=== PATIENT | male | born 1955 | race Caucasian/White ===

== ENCOUNTER 2016-12-03 18:40 | Emergency (ER) | payer OTHER ==
[2016-12-03 18:59] VITALS: BP 152/90; PULSE 108; TEMP 97.8; BMI 26.5
--- NOTE | 2016-12-03 19:07 | PDOC ---
Rapid Medical Evaluation Chief Complaint: Bleeding from Anus Time Seen by Provider: 12/03/16 18:49 Medical Evaluation: Allergies Allergy/AdvReac Type Severity Reaction Status Date / Time No Known Drug Allergies Allergy Verified 12/03/16 18:45 Vital Signs Temp Pulse Resp BP Pulse Ox 97.8 F 108 H 18 152/90 100 12/03/16 18:46 12/03/16 18:46 12/03/16 18:46 12/03/16 18:46 12/03/16 18:46 12/03/16 19:04 RME Note: I have performed a brief, in-person evaluation of this patient . This patient presents with CC: rectal bleeding today increased; Hx colon CA; scheduled for colonoscopy x tomorrow with LMD Pertinent PE findings are: ; VSS, very anxious; HR= 108 I have ordered: labs The patient will proceed to ED for further evaluation.
[2016-12-03 19:11] LABS: BASOPHIL 0.4 % (0-2.0); EOSINOPHIL 1.9 % (0-4.5); MCHC 34.5 g/dl (32.0-35.9); MEAN PLT VOLUME 7.7 fl (7.5-11.1); PLATELET COUNT 157 K/MM3 (134-434); RDW 14.1 % (11.9-15.9); WHITE BLOOD COUNT 9.7 K/mm3 (4.0-10.0)
[2016-12-03 19:23] LABS: INR 1.08 (0.82-1.09); PROTHROMBIN TIME (PATIENT) 11.9 SEC (9.98-11.88)
--- NOTE | 2016-12-03 20:13 | PDOC ---
History of Present Illness - General History Source: Patient Exam Limitations: No Limitations - History of Present Illness Initial Comments: 12/03/16 20:27 Patient is a 61 year old male with significant past medical of colon ca (in remission) and hemorrhoids who presents to the ED with rectal bleeding since 5 pm today. Patient notes that he has a colonoscopy schedule with Dr. Shelton tomorrow and started bowel prep early this AM, He notes that during the prep he was not experiencing any major issues until 5 pm today where he developed rectal bleeding. Patient reports bleeding hemorrhoids in the past. He became concerned about the amount of blood that he was having today. He has no other complaints at the time. He denies fever, chills, SOB, cp, nausea, vomiting,abdominal pain, diarrhea or constipation. PCP - Dr. Gonsales GI - Dr. Shelton Oncologist - Dr. Oliva <Flor Bloom - Last Filed: 12/03/16 20:27> - General History Source: Patient <Alphonso Singh - Last Filed: 12/03/16 21:05> - General Chief Complaint: Bleeding from Anus Stated Complaint: RECTAL BLEEDING Time Seen by Provider: 12/03/16 18:49 Past History <Flor Bloom - Last Filed: 12/03/16 20:27> - Past Medical History Anemia: No Asthma: No Cancer: Yes (Colon 2011) Cardiac Disorders: No CVA: No COPD: No CHF: No Dementia: No Diabetes: No GI Disorders: Yes (Acid Reflux/Colon CA; DIVERTICULOSIS; POLYPS,diverticulosis) Disorders: No HTN: Yes Hypercholesterolemia: No Liver Disease: No Seizures: No Thyroid Disease: No Other medical history: gout - Surgical History Abdominal Surgery: Yes (RIGHT HEMICOLECTOMY) Appendectomy: Yes (1987) Cardiac Surgery: No Cholecystectomy: No Lung Surgery: No Neurologic Surgery: No Orthopedic Surgery: No - Psycho/Social/Smoking Cessation Hx Anxiety: No Suicidal Ideation: No Smoking History: Never smoked Have you smoked in the past 12 months: No If you are a former smoker, when did you quit?: 30 Years ago Information on smoking cessation initiated: No Hx Alcohol Use: No Drug/Substance Use Hx: No Substance Use Type: None Hx Substance Use Treatment: No <Alphonso Singh - Last Filed: 12/03/16 21:05> - Past Medical History Allergies/Adverse Reactions: Allergies Allergy/AdvReac Type Severity Reaction Status Date / Time No Known Drug Allergies Allergy Verified 12/03/16 18:45 Home Medications: Ambulatory Orders Allopurinol [Zyloprim -] 100 mg PO DAILY #0 02/27/12 Acetaminophen [Tylenol .Regular Strength -] 650 mg PO Q4H PRN #0 tablet Amlodipine Besylate [Norvasc -] 5 mg PO BID 04/18/12 Cyanocobalamin [Vitamin B12 -] 1,000 mcg PO DAILY 02/24/15 Famotidine [Pepcid] 40 mg PO PRN 02/24/15 Ibuprofen/Diphenhydramine Cit [Advil Pm Caplet] 1 each PO PRN 02/24/15 Multivitamins [Tab-A-Vit -] 1 tab PO DAILY 02/24/15 Review of Systems - Review of Systems Able to Perform ROS?: Yes Comments:: 12/03/16 20:28 CONSTITUTIONAL: Absent: fever, chills, diaphoresis, generalized weakness, malaise, loss of appetite HEENT: Absent: rhinorrhea, nasal congestion, throat pain, throat swelling, difficulty swallowing, mouth swelling, ear pain, eye pain, visual Changes CARDIOVASCULAR: Absent: chest pain, syncope, palpitations, irregular heart rate, lightheadedness , peripheral edema RESPIRATORY: Absent: cough, shortness of breath, dyspnea with exertion, orthopnea, wheezing, stridor, hemoptysis GASTROINTESTINAL: Present: rectal bleeding Absent: abdominal pain, abdominal distension, nausea, vomiting, diarrhea, constipation, melena, hematochezia GENITOURINARY: Absent: dysuria, frequency, urgency, hesitancy, hematuria, flank pain, genital pain MUSCULOSKELETAL: Absent: myalgia, arthralgia, joint swelling SKIN: Absent: rash, itching, pallor HEMATOLOGIC/IMMUNOLOGIC: Absent: easy bleeding, easy bruising, lymphadenopathy, frequent infections ENDOCRINE: Absent: unexplained weight gain, unexplained weight loss, heat intolerance, cold intolerance NEUROLOGIC: Absent: headache, focal weakness or paresthesias, dizziness, unsteady gait, seizure, mental status changes, bladder or bowel incontinence PSYCHIATRIC: Absent: anxiety, depression, suicidal or homicidal ideation, hallucinations. <Flor Bloom - Last Filed: 12/03/16 20:27> *Physical Exam - Vital Signs Last Vital Signs Temp Pulse Resp BP Pulse Ox 97.8 F 108 H 18 152/90 100 12/03/16 18:46 12/03/16 18:46 12/03/16 18:46 12/03/16 18:46 12/03/16 18:46 - Physical Exam Comments: 12/03/16 20:28 GENERAL: Well developed, well nourished. Awake and alert. In no acute distress. HEENT: Normocephalic, atraumatic. PERRLA, EOMI. No conjunctival pallor. Sclerae are non -icteric. Moist mucous membranes. Oropharynx is clear. NECK: Supple. Full ROM. No JVD. Carotid pulses 2+ and symmetric, without bruits. No thyromegaly. No lymphadenopathy. CARDIOVASCULAR: Regular rate and rhythm. No murmurs, rubs, or gallops. Distal pulses are 2+ and symmetric. PULMONARY: No evidence of respiratory distress. Lungs clear to auscultation bilaterally. No wheezing, rales or rhonchi. ABDOMINAL: Soft. Non-tender. Non-distended. No rebound or guarding. No organomegaly. Normoactive bowel sounds. MUSCULOSKELETAL Normal range of motion at all joints. No bony deformities or tenderness. No CVA tenderness. EXTREMITIES: No cyanosis. No clubbing. No edema. No calf tenderness. SKIN: Warm and dry. Normal capillary refill. No rashes. No jaundice. NEUROLOGICAL: Alert, awake, appropriate. Cranial nerves 2-12 intact. No deficits to light touch and temperature in face, upper extremities and lower extremities. No motor deficits in the in face, upper extremities and lower extremities. Normoreflexic in the upper and lower extremities. Normal speech. PSYCHIATRIC: Cooperative. Good eye contact. Appropriate mood and affect. Rectal exam: +hemorrhoid at 6 oclock position not currently bleeding but clotted blood surrounding it non tender tone is good <Flor Bloom - Last Filed: 12/03/16 20:27> - Vital Signs Last Vital Signs Temp Pulse Resp BP Pulse Ox 97.8 F 108 H 18 152/90 100 12/03/16 18:46 12/03/16 18:46 12/03/16 18:46 12/03/16 18:46 12/03/16 18:46 <Alphonso Singh - Last Filed: 12/03/16 21:05> ED Treatment Course - LABORATORY CBC & Chemistry Diagram: 12/03/16 19:00 12/03/16 19:00 - ADDITIONAL ORDERS Additional order review: 12/03/16 19:00 RBC 5.43 MCV 84.0 MCHC 34.5 RDW 14.1 D MPV 7.7 D Neutrophils % 76.0 Lymphocytes % 14.5 Monocytes % 7.2 Eosinophils % 1.9 Basophils % 0.4 <Flor Bloom - Last Filed: 12/03/16 20:27> - LABORATORY CBC & Chemistry Diagram: 12/03/16 19:00 12/03/16 19:00 - ADDITIONAL ORDERS Additional order review: 12/03/16 19:00 RBC 5.43 MCV 84.0 MCHC 34.5 RDW 14.1 D MPV 7.7 D Neutrophils % 76.0 Lymphocytes % 14.5 Monocytes % 7.2 Eosinophils % 1.9 Basophils % 0.4 <Alphonso Singh - Last Filed: 12/03/16 21:05> Medical Decision Making - Medical Decision Making 12/03/16 21:02 Dr. Singh: The scribe's documentation has been prepared under my direction and personally reviewed by me in its entirery. I confirm that the note above accurately reflects all work, treatment, procedures, and medical decision making performed by me. patient presented rectal bleeding. patient was concerned as he is preparing for colonoscopy tomorrow with GI. Labs are stable. patient hemodymically stable. Patient will be discharged. Patient will follow-up with GI as scheduled with GI tomorrow <Alphonso Singh - Last Filed: 12/03/16 21:05> *DC/Admit/Observation/Transfer - Attestations Scribe Attestion: 12/03/16 20:29 Documentation prepared by ANGIE Griffin, acting as chief medical technologist for Alphonso Singh DO. <Flor Bloom - Last Filed: 12/03/16 20:27> - Discharge Dispostion Admit: No <Alphonso Singh - Last Filed: 12/03/16 21:05> Diagnosis at time of Disposition: Rectal bleed Hemorrhoid Qualifiers: Hemorrhoid type: unspecified Qualified Code(s): K64.9 - Unspecified hemorrhoids - Discharge Dispostion Disposition: HOME Condition at time of disposition: Stable - Referrals Referrals: Prateek Gonsales MD [Primary Care Provider] - - Patient Instructions Printed Discharge Instructions: DI for Rectal Bleeding, Hemorrhoids Additional Instructions: Please follow up with GI for your appointment as schedule tomorrow. Return i any problems
[2016-12-03 20:24] LABS: ALBUMIN 4.5 g/dl (3.4-5.0); ANION GAP 10 (8-16); BILIRUBIN,TOTAL 0.8 mg/dL (0.2-1.0); CALCIUM 8.8 mg/dL (8.5-10.1); CO2 27 mmol/L (21-32); GLUCOSE,RANDOM 87 mg/dL (74-106); SGOT/AST 32 U/L (15-37); SGPT/ALT 37 U/L (12-78); TOT PROT 7.7 g/dl (6.4-8.2)
[2016-12-03 20:25] LABS: ALK PHOS 104 U/L (45-117)
== END 2016-12-03 21:45 | disposition home or self-care (01) ==
LOC: JER 18:40
DX: K64.9 Unspecified hemorrhoids (principal); Z85.038 Personal history of other malignant neoplasm of large intestine; I10 Essential (primary) hypertension; Z87.891 Personal history of nicotine dependence; K21.9 Gastro-esophageal reflux disease without esophagitis
CPT/HCPCS: 36415; 80053; 85025; 85044; 85610; 86850; 86900; 86901; 99283-25